=== PATIENT | female | born 2000 | race Caucasian/White ===

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

== ENCOUNTER 2021-03-17 16:19 | Outpatient (CLI) | payer MEDICAID ==
[2021-03-17 17:08] VITALS: BP 130/84
--- NOTE | 2021-03-17 17:08 | SLEEP CARE CONSULTATION ---
Information from patient questionnaire entered by Nicki Dickson. I have reviewed and concur with the information entered by Nicki Dickson. This document represents the service I personally performed and the decisions made by me, Nohemi Keith ARNP. History of Present Illness Service Date and Time: 03/17/2021 1619 Reason for Visit: New patient Chief Complaint: reports: Unrefreshed sleep, Snoring, Excessive daytime sleepiness, Observed pauses in breathing, Fatigue, Frequent awakenings at night Date of Onset: 5 years plus Usual bedtime: 8-9 pm Time it takes to fall asleep: within 15-45 minutes Snores at night: Yes Observed to quit breathing while asleep: Yes Sleeps alone due to snoring: Yes Number of times waking at night: 3-5 Reasons for waking at night: reports: Snoring, Pain, Bathroom, Other (discomfort). denies: Choking, Gasping for air Toss, Turn, or Twitch while sleeping: Yes Recalls having dreams: Yes Usually gets out of bed at: 6:30 am for work; other days varies Feels refreshed in the morning: No Morning headache: No Sleepy or fatigued during the day: Yes Ever fallen asleep while driving: No Takes day naps: Yes (daily for about 2-3 hours) Dreams during day naps: Yes Prior sleep studies: No Additional HPI information: I had the pleasure of seeing MOUNIKA FROST today regarding the possibility of him having a sleep disorder. His current complaints are excessive daytime sleepiness, fatigue, frequent night awakenings, snoring and unrefreshed sleep. She saw her PCP who referred her for snoring and trouble sleeping. She states she has trouble staying asleep and will always feel tired. It does not seem to matter how much sleep she gets, she is still tired. She has a roommate who told her she has pauses in breathing. She states when younger her grandmother would shake her awake because she was so quiet/not breathing when asleep. She states her weight has been fluctuating but she really started putting on weight after she started taking control orally. She has tried going to gym 3 days a week and watching her food intake but has real difficulty losing weight. (when she weighted today she had a 6 pound loss) - Parasomnia Symptoms Ever been unable to move upon waking from sleep: No Walks in sleep: No Talks in sleep: Yes Ever acted out dreams in sleep: Yes Ever felt weak in the knees when startled or emotional: Yes Bothered by creepy, crawly, restless sensations in legs: Yes (just at night when trying to go to sleep) Problems with memory or concentration: Yes (both; she is on adderall for ADD) Subjective Initial [place] Sleepiness Scale score: 9 (in 2020) Past Medical History Past Medical History: reports: Asthma, Depression, Attention deficit Social History The patient's occupation is a [employer]. Patient is Single and lives in [place]. Have you smoked in the past 12 months: No Alcohol use: No Caffeine use: Yes Caffeine amount and frequency: 24 oz coffee or tea 1-3 times a week Family History Family history of sleep disordered breathing: Yes Family Hx Sleep Apnea: Mother: Snoring, Sleep apnea - Treated, Father: Snoring, Grandparent: Snoring Allergies and Home Medications Drug allergies reviewed: Yes (menthol, methyl salicylate, antibiotic (unsure of name)) Home medication list reviewed: Yes Allergy and home medication list: Adderall Review of Systems Cardiovascular: denies: high blood pressure Gastrointestinal: reports: nausea, diarrhea, abdominal pain. denies: heartburn Neurological: reports: headaches, head trauma (hit head and cut forehead (18 stitches) when 14 years old/no concussion) Psychiatric: reports: Attention Deficit Hyperactivity, anxiety, depression Ear/Nose/Throat: reports: wisdom teeth removed. denies: injury to nose, tonsillectomy Endocrine: reports: sluggishness Musculoskeletal: reports: back pain, muscle pain or cramping Immunologic: reports: allergies to food or environment Physical Exam Blood Pressure: 130/84 Cuff size: wrist Heart Rate: 96 O2 Saturation: 99 Height: 5 ft 3 in Weight: 249 lb 9.6 oz Body Mass Index: 44.1 BMI Classification: Morbidly Obese Neck circumference: 16.5 (inches) Nostrils: patent to airflow Mouth and throat: narrow oropharynx Soft palate: long Hard palate: normal Uvula: normal Uvula visualization: 50% Mallampati Class II Tongue: enlarged in size with teeth hanna on lateral edges Tonsils: 1+ Chin and jaw: normal size and position Neck: normal w/o lymphadenopathy or thyromegaly Heart: regular rate and rhythm Lungs: clear bilaterally Impression and Plan 1. Suspected Obstructive Sleep Apnea-Hypopnea Syndrome, as suggested by a history of loud and irregular snoring, observed cessation of breath while asleep, frequent awakening during the night, unrefreshed sleep, cognitive impairment, and excessive daytime sleepiness. Narrow oropharynx and obesity are common predisposing factors for obstructive sleep apnea-hypopnea syndrome. I recommend proceeding to polysomnography to confirm the diagnosis and to assess severity. If the patient has significant sleep disordered breathing, a manual CPAP titration study will also be performed to find the optimal treatment pressure. I informed the patient of what the sleep studies involve and after some discussion, obtained agreement to proceed. The pathophysiology of obstructive sleep apnea-hypopnea syndrome was discussed with the patient and health risks of cardiovascular and cerebrovascular disease if not treated. AASM brochure for obstructive sleep apnea-hypopnea syndrome given and reviewed. Risks of drowsy driving discussed in detail and patient advised to avoid long distance driving and to tube puller at the first sign of drowsiness. Patient agreed to pl an. * Schedule polysomnography +- manual CPAP titration study and return in 1-2 weeks after the study to discuss result and initiate therapy. * Avoid long distance driving or driving when feeling sleepy. * Avoid sedative and muscle relaxant around bedtime. * Attempt to lose weight. * Review instructions provided by trained office staff on how to prepare for the sleep study. * Return for follow-up after sleep study completed. Counseling Topics: Weight loss health impact Visit Type: In Office Time Spent with Patient (minutes): 30 Provider Statement: I spent 100% of the Face to Face Visit with the patient with greater than 50% spent counseling the patient and coordination of care.
== END 2021-03-17 16:20 | disposition home or self-care (01) ==
LOC: SC 16:19
PROVIDERS: ATTEND Nurse Practitioner Family
DX: G47.10 Hypersomnia, unspecified (principal); R41.89 Other symptoms and signs involving cognitive functions and awareness; G47.8 Other sleep disorders; R06.81 Apnea, not elsewhere classified; R06.83 Snoring; E66.01 Morbid (severe) obesity due to excess calories
CPT/HCPCS: 99203; 99212

== ENCOUNTER 2021-03-22 15:29 | Outpatient (CLI) | payer MEDICAID | END 2021-03-22 15:30 | disposition home or self-care (01) | LOC: SC 15:29 | PROVIDERS: ATTEND Nurse Practitioner Family | DX: R06.83 Snoring (principal); G47.8 Other sleep disorders; G47.10 Hypersomnia, unspecified; R06.81 Apnea, not elsewhere classified; R41.89 Other symptoms and signs involving cognitive functions and awareness; E66.01 Morbid (severe) obesity due to excess calories; Z68.41 Body mass index [BMI] 40.0-44.9, adult | CPT/HCPCS: 95806 ==

== ENCOUNTER 2021-04-13 16:19 | Outpatient (CLI) | payer MEDICAID ==
--- NOTE | 2021-04-13 16:45 | SLEEP CARE CONSULTATION ---
Information from patient questionnaire entered by Ryanne Perez. I have reviewed and concur with the information entered by Ryanne Perez. This document represents the service I personally performed and the decisions made by , Nohemi Keith ARNP. History of Present Illness Service Date and Time: 04/13/2021 1619 Initial [place] Sleepiness Scale score: 9 (in 2020) Current [place] Sleepiness Scale score: 9 Additional HPI information: MOUNIKA FROST returns for follow up and results of the recently performed home sleep study. The patient was informed of the following findings: No significant sleep disordered breathing with an average AHI of 1.0 and marlyn oxygen saturation of 93%. I explained the pathophysiology behind obstructive sleep apnea. Patient does not have sleep apnea and was advised how weight gain could increase the risk of developing sleep apnea in the future. I strongly encouraged the patient to lose weight. Patient has light snoring. Snoring can be reduced by weight loss. Weight loss is best achieved with diet consult. Patient instructed to contact PCP for referral. Snoring can also be treated with an oral appliance from a dentist. Advised to check insurance coverage. In addition, an ENT evaluation can be do to see if other treatment is indicated. Patient does not drink alcohol. Patient was cautioned about risks of drowsy driving until sleepiness symptoms resolve. Sleep Study - Results Type of Sleep Study: Home sleep study Prior sleep studies: No Polysomnography/Home Sleep Study results: Physician Impression: The quality of the study is good. The length of the study is not optimal (< 240 minutes). Please also see the tabulated and graphic data. 1. No significant sleep disordered breathing, with an AHI of 1.0/hr and marlyn SaO2 of 93%. During the study, the patient had 1 apneas (1 obstructive, 0 central, 0 mixed) and 1 hypopnea. The longest episode lasted 19.0 seconds. The patient slept adequately in supine position (supine AHI was 0.0 and non-supine, 1.40). Allergies and Home Medications Home medication list reviewed: Yes (no changes) Review of Systems Review of systems same as previous: Yes (no changes) Physical Exam Heart Rate: 86 O2 Saturation: 98 Height: 5 ft 3 in Weight: 248 lb Body Mass Index: 43.9 BMI Classification: Morbidly Obese Impression and Plan Snoring but no significant sleep disordered breathing. Patient advised that often weight loss will reduce snoring as well as apnea risk. An oral appliance can also be used for snoring. This would require a dental consultation. Patient cautioned not to use other online appliances as can cause bite issues. A list of accredited dentists in [facility] and one local dentist who makes oral appliances is available in office. Patient is advised to check if insurance will cover. An ENT consult can also be helpful to determine if any other treatment is an option. * Attempt to lose weight * Avoid alcohol consumption near bedtime * The patient is cautioned about driving until sleepiness is completely resolved. * Return as needed. Counseling Topics: Weight loss health impact Visit Type: In Office Time Spent with Patient (minutes): 10 Provider Statement: I spent 100% of the Face to Face Visit with the patient with greater than 50% spent counseling the patient and coordination of care.
== END 2021-04-13 16:20 | disposition home or self-care (01) ==
LOC: SC 16:19
PROVIDERS: ATTEND Nurse Practitioner Family
DX: R06.83 Snoring (principal); E66.01 Morbid (severe) obesity due to excess calories; Z68.41 Body mass index [BMI] 40.0-44.9, adult
CPT/HCPCS: 99212

== ENCOUNTER 2021-05-01 09:12 | Outpatient (CLI) | payer MEDICAID | END 2021-05-01 23:59 | disposition EMS.NT | LOC: EMS 09:12 | DX: Z04.1 Encounter for examination and observation following transport accident (principal) ==

== ENCOUNTER 2021-05-03 16:57 | Outpatient (CLI) | payer OTHER, MEDICAID ==
--- NOTE | 2021-05-04 08:12 | XRAY Report ---
PROCEDURE: Cervical Spine 2 View INDICATIONS: CERVICAL SPASM TECHNIQUE: view(s) of the cervical spine were acquired. COMPARISON: None. FINDINGS: Bones: No fractures or dislocations to the T1 level. The lateral masses of C1 appear intact on the odontoid view. No suspicious bony lesions. Facet sclerosis at C7-T1. Soft tissues: No prevertebral soft tissue swelling. IMPRESSION: Mild cervical spondylitic change. No evidence acute bony abnormality of the cervical spi ne. If clinical suspicion and/or symptoms persist, further assessment with repeat plain films or advanced imaging (e.g., CT, MRI, or bone scan) may be helpful for further assessment. Reviewed by: Rob Larsen MD on 05/04/2021 8:10 AM PDT Approved by: Rob Larsen MD on 05/04/2021 8:10 AM PDT Station ID: [id number]
--- NOTE | 2021-05-04 08:13 | XRAY Report ---
PROCEDURE: Thoracic Spine 2 View INDICATIONS: MUSCLE SPASM OF THORACIC BACK TECHNIQUE: 2 views of the thoracic spine were acquired. COMPARISON: Cervical spine from the same date FINDINGS: Bones: No fractures or dislocations. No suspicious bony lesions. 12 pairs of ribs are noted, and a ppear intact where visualized. Soft tissues: No paravertebral stripe thickening. IMPRESSION: No evidence acute bony abnormality of the thoracic spine. If clinical suspicion and/or symptoms persist, further assessment with repeat plain films or advanced imaging (e.g., CT, MRI, or bone scan) may be helpful for further assessment. Reviewed by: Rob Larsen MD on 05/04/2021 8:11 AM PDT Approved by: Rob Larsen MD on 05/04/2021 8:11 AM PDT Station ID: [id number]
== END 2021-05-03 23:59 | disposition home or self-care (01) ==
LOC: DI.N 16:57
PROVIDERS: ATTEND Family Medicine
DX: M47.812 Spondylosis without myelopathy or radiculopathy, cervical region (principal)

== ENCOUNTER 2021-10-31 08:00 | Outpatient (CLI) | payer MEDICAID ==
--- NOTE | 2021-10-31 08:25 | XRAY Report ---
PROCEDURE: Chest 2 View X-Ray INDICATIONS: WHEEZING TECHNIQUE: 2 view(s) of the chest. COMPARISON: None. FINDINGS: SUPPORT DEVICES: None. LUNGS/PLEURA: No focal consolidation, pleural effusion or space-occupying pneumothorax. MEDIASTINUM: The cardiomediastinal silhouette is within normal limits. BONES/SOFT TISSUES: No acute abnormality. IMPRESSION: 1.No acute cardiopulmonary abnormality. Reviewed by: Tutu Finch MD on 10/31/2021 8:24 AM PDT Approved by: Tutu Finch MD on 10/31/2021 8:24 AM PDT Station ID: [id number]
== END 2021-10-31 23:59 | disposition home or self-care (01) ==
LOC: DI.N 08:00
PROVIDERS: ATTEND Family Medicine
DX: R06.2 Wheezing (principal); Z20.822 Contact with and (suspected) exposure to COVID-19